=== PATIENT | female | born 1945 | race Caucasian/White ===

== ENCOUNTER 2017-07-28 14:54 | Emergency (ER) | payer SELFPAY ==
[~2017-07-28] VITALS: Ht 170.2 cm; Wt 81.7 kg
== END 2017-07-28 15:35 | disposition home or self-care (01) ==
LOC: ED 14:54
DX: M25.572 Pain in left ankle and joints of left foot (principal)

== ENCOUNTER 2018-08-08 14:08 | Emergency (ER) | payer MEDICARE ==
[~2018-08-08] VITALS: Ht 170.2 cm; Wt 81.7 kg
[2018-08-08] MEDS ORDERED: HYDROXYCHLOROQ200 MG PO (14:28)
[2018-08-08] MEDS ORDERED: LEVOTHYROXINE100 MCG PO (14:28)
[2018-08-08] MEDS ORDERED: LEFLUNOMIDE20 MG PO (14:28)
[2018-08-08] MEDS ORDERED: LISINOPRIL5 MG PO (14:28)
[2018-08-08] MEDS ORDERED: VENLAFAXINE H37.5 M1 PO (14:28)
[2018-08-08] MEDS ORDERED: ALPRAZOLAM0.25 MG PO (14:29)
--- NOTE | 2018-08-08 15:11 | EKG ---
[facility] [address] [place], [place] [address] Signed Sinus rhythm with premature supraventricular complexes Low voltage QRS Borderline ECG No previous ECGs available Confirmed by BOBO EMERY DO ([id number]) on 08/08/2018 3:10:46 PM Electronically Signed By: BOBO EMERY DO 08/08/18 1511 PATIENT NAME: ALTON GR Electrocardiogram DATE OF : 47 PHYSICIAN: BOBO EMERY DO REPORT #: [id number] REPORT IS CONFIDENTIAL AND NOT TO BE RELEASED WITHOUT AUTHORIZATION
== END 2018-08-08 17:50 | disposition home or self-care (01) ==
LOC: ED 14:08
DX: H93.13 Tinnitus, bilateral (principal); I10 Essential (primary) hypertension; Z85.3 Personal history of malignant neoplasm of breast; Z79.899 Other long term (current) drug therapy
CPT/HCPCS: 70450; 80053; 85025; 93005; 93010; 99284-25

== ENCOUNTER 2024-05-30 14:14 | Emergency (ER) | payer MEDICARE ==
[~2024-05-30] VITALS: Ht 165.1 cm; Wt 72.2 kg
[~2024-05-30 14:14] MED LIST: ALPRAZOLAM0.25 MG PO; HYDROXYCHLOROQ200 MG PO; LEFLUNOMIDE20 MG PO; LEVOTHYROXINE100 MCG PO; LISINOPRIL5 MG PO; VENLAFAXINE H37.5 M1 PO
[2024-05-30 17:26] LABS: BASOPHILS 0.8 % (0-2); HEMATOCRIT 40.9 % (35.0-50.0); LYMPHOCYTES 13.3 % (24-44); MCHC 34.2 g/dl (30-36); MCV 87.9 fl (81-99); MONOCYTES 9.9 % (0-12); PLATELET COUNT 222 K/uL (140-440); RBC 4.65 M/ul (4.3-5.7)
[2024-05-30 17:37] LABS: ALBUMIN 4.1 g/dL (3.4-5.0); ALBUMIN/GLOBULIN RATIO 0.93 (1.1-2.4); BILIRUBIN, TOTAL 0.6 mg/dL (0.2-1.0); BUN/CREATININE RATIO 18.18 (6.0-28.6); CALCIUM 10.1 mg/dL (8.5-10.1); CREATININE, SERUM 0.77 mg/dL (0.55-1.02); PROTEIN, TOTAL 8.5 g/dL (6.4-8.2)
[2024-05-30] MEDS ORDERED: DUPIXENT P300 MG/2 M SUB-Q (17:46)
[2024-05-30 18:31] LABS: INFLUENZA B NAA NEGATIVE (NEGATIVE); RESPIRATORY SYNCYTIAL VIR NAA NEGATIVE (NEGATIVE)
[2024-05-30] MEDS ORDERED: CIPROFLOXACIN 500 MG TAB PO ONE (19:00)
[2024-05-30] MEDS ORDERED: metroNIDAZOLE 250 MG TAB PO ONE (19:00)
[2024-05-30] MEDS ORDERED: CIPRO500 MG PO (19:10)
[2024-05-30] MEDS ORDERED: METRONIDAZOLE500 MG PO (19:10)
[2024-05-30] MEDS ORDERED: ONDANSETRON ODT4 MG PO (19:10)
[2024-05-30 19:15] VITALS: BP 156/100
[2024-05-30] MEDS ORDERED: ONDANSETRON 4 MG TAB ODT SL ONE (19:15)
== END 2024-05-30 19:15 | disposition home or self-care (01) ==
LOC: ED 14:14
PROVIDERS: Emergency Medicine
DX: K57.92 Diverticulitis of intestine, part unspecified, without perforation or abscess without bleeding (principal); I10 Essential (primary) hypertension; Z87.891 Personal history of nicotine dependence; Z88.2 Allergy status to sulfonamides; Z88.0 Allergy status to penicillin
CPT/HCPCS: 36415; 74177; 80053; 83690; 85025; 87502; 99284-25; A9270; Q9967; U0002